=== PATIENT | female | born 2000 | race Caucasian/White ===

== ENCOUNTER 2019-06-28 22:44 | Emergency (ER) | payer OTHER ==
[~2019-06-28] VITALS: Ht 165.1 cm; Wt 104.3 kg
[~2019-06-28 22:44] MED LIST: ALBU90OI INH
== END 2019-06-29 01:05 | disposition home or self-care (01) ==
LOC: ER 22:44
DX: S09.90XA Unspecified injury of head, initial encounter (principal); S16.1XXA Strain of muscle, fascia and tendon at neck level, initial encounter; V89.2XXA Person injured in unspecified motor-vehicle accident, traffic, initial encounter
CPT/HCPCS: 70450; 72125; 99284-25